=== PATIENT | male | born 2000 | race Caucasian/White ===

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

== ENCOUNTER 2021-12-04 18:22 | Emergency (ER) | payer OTHER ==
[~2021-12-04] VITALS: Ht 172.7 cm; Wt 117.5 kg
== END 2021-12-04 21:32 | disposition home or self-care (01) ==
LOC: ED 18:22
DX: S32.2XXA Fracture of coccyx, initial encounter for closed fracture (principal); W55.12XA Struck by horse, initial encounter; G43.909 Migraine, unspecified, not intractable, without status migrainosus; Z91.030 Bee allergy status
CPT/HCPCS: 72220; 99283-25